=== PATIENT | male | born 2000 | race African-American/Black ===

== ENCOUNTER 2021-03-22 21:27 | Emergency (ER) | payer OTHER ==
[2021-03-22 21:32] VITALS: BP 120/78; PULSE 60; TEMP 98; BMI 21.4
[2021-03-22] MEDS ORDERED: LIDOCAINE HCL 1%, 10 MG/ML (20ML VIAL) ONE (22:26)
[2021-03-22] MEDS ORDERED: SODIUM BICARBONATE 0.5 MEQ/ML - 5 ML VIAL ONE (22:26)
== END 2021-03-22 22:58 | disposition home or self-care (01) ==
LOC: JER 21:27 → JERFT 21:27
PROC: 0HQFXZZ Repair Right Hand Skin, External Approach (ICD-10-PCS; principal; 2021-03-22)
DX: S61.411A Laceration without foreign body of right hand, initial encounter (principal)
CPT/HCPCS: 73130-TC-RT-FY; 99284-25

== ENCOUNTER 2021-03-29 16:44 | Emergency (ER) | payer OTHER | END 2021-03-29 17:29 | disposition home or self-care (01) | LOC: JERFT 16:44 | DX: Z48.02 Encounter for removal of sutures (principal) | CPT/HCPCS: 99281-25 ==